=== PATIENT | male | born 1940 | race Caucasian/White ===

== ENCOUNTER → 2018-11-18 12:37 | Outpatient (CLI) | payer MEDICARE, SELFPAY ==
--- NOTE | 2018-11-18 | DI.MRI.S_ITS ---
PROCEDURE: MR THORACIC SPINE WO CON INDICATIONS: PAIN RADIATING AROUND THE LEFT CHEST TECHNIQUE: Noncontrast sagittal T1 spine echo and T2 fast spin echo, sagittal STIR, axial T1 and T2 fast spin echo through the thoracic spine. COMPARISON: None. FINDINGS: Image quality: Limited by patient motion artifact. Alignment and Curvature: There is normal bony alignment. Bone Marrow: Marrow is of normal overall signal. No acute vertebral body compression fractures. Spinal Cord: Visualized spinal cord is normal in size and signal. Paraspinous Soft Tissues: No paravertebral masses. Miscellaneous: Mild multilevel degenerative disc changes are noted. No central stenosis. No neural foraminal narrowing. No neural impingement. IMPRESSION: 1. 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 2. No central stenosis 3. No neural foraminal narrowing. 4. No neural impingement. Dictated by: Niesha Morelos MD, PhD on 11/18/2018 at 17:07 Approved by: Niesha Morelos MD, PhD on 11/18/2018 at 17:10
--- NOTE | 2018-11-18 12:50 | DI.MRI.S_ITS ---
PROCEDURE: MR CERVICAL SPINE WO CON INDICATIONS: SPINAL STENOSIS CHEST PAIN RIGHT HIP PAIN TECHNIQUE: Noncontrast sagittal T1 spin echo and T2 fast spin echo, sagittal STIR, and axial gradient echo or T2 fast spin echo through the cervical spine. COMPARISON: [facility], MR, C-SPINE WITHOUT CONTRAST, 08/05/2017, 9:46. [facility], CR, SPINE CERVICAL 2 OR 3VW, 03/05/2016, 10:48. [facility], MR, C-SPINE WITHOUT CONTRAST, 02/01/2016, 12:40. FINDINGS: Image quality: Limited by patient motion artifact. Study was terminated as the patient prior to acquisition of oblique foraminal images. Alignment and Curvature: There is trace C7-T1 anterolisthesis. Bone Marrow: Mild reactive endplate changes noted adjacent to the C5-C6, C6-C7 and C7-T1 discs. Spinal Cord: Visualized spinal cord has normal size and signal. No cerebellar tonsillar herniation. Paraspinous Soft Tissues: No paravertebral masses. Prevertebral soft tissues are normal in thickness. C2-C3: Loss of disc signal. Mild bilateral facet hypertrophy. Severe right and mild left neural foraminal narrowing with compression of the exiting right C3 nerve root. C3-C4: Loss of disc signal. Moderate, diffuse disc bulge. Mild ligamentum flavum hypertrophy. Severe narrowing of the central canal with slight compression of the cervical spinal cord. Severe right and mild left facet hypertrophy. Severe bilateral neural foraminal narrowing with compression of the exiting C4 nerve roots. C4-C5: Loss of disc signal. Minimal, diffuse disc bulge. Mild narrowing of the central canal. Severe right and mild left neural foraminal narrowing. Bilateral uncovertebral joint hypertrophy. Severe bilateral neural foraminal narrowing with compression of the exiting C5 nerve roots. C5-C6: Loss of disc signal. Mild, diffuse disc bulge. Moderate narrowing of the central canal. Mild right and severe left facet hypertrophy. Mild bilateral uncovertebral joint hypertrophy. Moderate right and severe left neural foraminal narrowing with compression of the exiting left C6 nerve root. C6-C7: Loss of disc signal and height. Moderate, diffuse disc bulge. Moderate ligamentum flavum hypertrophy. Severe narrowing of the central canal with compression of the cervical spinal cord. Mild bilateral facet hypertrophy and uncovertebral joint hypertrophy. Severe bilateral neural foraminal narrowing with compression of the exiting C7 nerve roots. C7-T1: Loss of disc signal and slight loss of disc height. Mild, diffuse disc bulge. Moderate-sized central disc protrusion superimposed on diffuse disc bulge. Mild ligamentum flavum hypertrophy. Severe narrowing of the central canal with compression of the cervical spinal cord. Mild bilateral facet hypertrophy. Severe bilateral neural foraminal narrowing with compression of the C8 nerve roots IMPRESSION: 1. Multilevel degenerative disc disease. 2. Multilevel facet and uncovertebral joint hypertrophy. 3. Severe C3-C4, C6-C7 and C7-T1 central canal narrowing. Moderate C5-C6 central canal narrowing. Mild C4-C5 central canal narrowing. 4. Severe bilateral C3-C4, C4-C5, C6-C7 and C7-T1 neural foraminal narrowing. Moderate right and severe left C5-C6 neural foraminal narrowing. Severe right and mild left C2-C3 neural foraminal narrowing. Dictated by: Niesha Morelos MD, PhD on 11/18/2018 at 16:51 Approved by: Niesha Morelos MD, PhD on 11/18/2018 at 17:02
== END ==
PROVIDERS: PCP Family Medicine Geriatric Medicine; Visit Provider Family Medicine Geriatric Medicine
DX: M51.34 Other intervertebral disc degeneration, thoracic region (principal); M50.30 Other cervical disc degeneration, unspecified cervical region
CPT/HCPCS: 72141; 72146